=== PATIENT | female | born 1970 | race Two or more races ===

== ENCOUNTER 2024-05-22 23:46 | Emergency (ER) | payer MEDICAID, SELFPAY ==
[2024-05-23 00:12] VITALS: BP 149/110; PULSE 74; RESP 20; TEMP 36.9; O2SAT 97
--- NOTE | 2024-05-23 00:28 | PD.EDSKIN ---
ED Skin Abcess FB-RME/HPI General Chief complaint: Skin/Abscess/Foreign Body Stated complaint: RASH/WOUND TO RIGHT LOWER LEG Time Seen by Provider: 05/22/24 23:52 Source: patient, RN notes reviewed and old records reviewed Arrival date/time: 05/22/24 23:46 Mode of arrival: ambulatory Limitations: no limitations RME / HPI RME / HPI narrative: 54yof presents to ED for 4-month history of rash to right ankle. Patient states rash is mostly itchy but mildly painful. Denies new soaps, detergents, foods, medications or outdoor exposures. No tongue/throat swelling, sob or n/v reported. No recent medications or treatments. Related Data Home Medications ?Medication ?Instructions ?Recorded ?Confirmed albuterol sulfate 90 mcg/actuation 2 puff inhalation Q6H PRN Wheezing 09/26/20 09/26/20 aerosol inhaler aspirin 81 mg tablet,delayed 81 mg PO QDAY 09/26/20 09/26/20 release ferrous sulfate 325 mg (65 mg 325 mg PO BID 09/26/20 09/26/20 iron) tablet naproxen 375 mg tablet 375 mg PO BID 09/26/20 09/26/20 pantoprazole 20 mg tablet,delayed 20 mg PO QDAY 09/26/20 09/26/20 release sertraline 50 mg tablet 50 mg PO QDAY 09/26/20 09/26/20 valsartan 40 mg tablet 40 mg PO BID 09/26/20 09/26/20 Previous Rx's ?Medication ?Instructions ?Recorded prednisone 50 mg tablet 50 mg PO QDAY #5 tabs 10/17/21 omeprazole 40 mg capsule,delayed 40 mg PO QDAY #30 caps 10/04/22 release ibuprofen 600 mg tablet 600 mg PO Q6H #30 tabs 10/27/23 diphenhydramine HCl 25 mg capsule 25 mg PO Q8H PRN allergic symptoms 11/24/23 (Benadryl) #30 caps clotrimazole-betamethasone 1 1 applic topical BID 4 weeks #45 05/23/24 %-0.05 % topical cream grams Allergies Allergy/AdvReac Type Severity Reaction Status Date / Time Penicillins Allergy Severe Hives Verified 05/22/24 23:47 Review of Systems Review of Systems Systems Reviewed: All systems reviewed, normal except as documented Constitutional Constitutional: Denies fever(s) Integumentary/Breasts Skin/Breast: Reports pruritus, Reports rash and Reports skin pain Past Medical History Past Medical History CARDIAC: Positive Hypertension RESPIRATORY: Positive Asthma and Sleep Apnea GASTROINTESTINAL: Positive Gastroesophageal Reflux Disease and Obesity ENDOCRINE: Positive Diabetes Mellitus Type 2 HEMATOLOGIC: Positive Anemia PSYCHO/SOCIAL: Positive Depression and Anxiety Surgical History SURGICAL: Positive Section Social History SMOKING STATUS: Never smoker ED Exam General Limitations: Present no limitations General appearance: Present alert and in no apparent distress Head Head exam: Present atraumatic and normocephalic Eye Eye exam: Present normal appearance, PERRL and EOMI ENT ENT exam: Present normal exam, normal oropharynx and mucous membranes moist Neck Neck exam: Present normal inspection and full ROM Chest Chest inspection: Present normal inspection and symmetric chest wall rise Respiratory Respiratory exam: Present normal lung sounds bilaterally; Absent respiratory distress, wheezes or stridor Cardiovascular Cardiovascular exam: Present regular rate and normal rhythm Extremities Exam Extremities exam: Present normal inspection and full ROM; Absent tenderness, pedal edema or joint swelling Neurological Exam Neurological exam: Present alert and oriented X3 Psychiatric Psychiatric exam: Present normal affect and normal mood Skin Skin exam: Present warm, dry, intact and rash (Multiple large annular dry, scaly lesions to right ankle with excoriations, scabbing) Course Quality Measures none Vital Signs Vital signs: Vital Signs Temperature 98.4 F 05/23/24 00:12 Pulse Rate 74 05/23/24 00:12 Respiratory Rate 20 05/23/24 00:12 Blood Pressure 149/110 H 05/23/24 00:12 Pulse Oximetry (%) 97 05/23/24 00:12 Oxygen Delivery Method Room Air 05/23/24 00:12 Skin / Abscess / Foreign Body MDM Narrative MDM Narrative:: 54yof presents to ED for 4-month history of rash to right ankle. Patient states rash is mostly itchy but mildly painful. Denies new soaps, detergents, foods, medications or outdoor exposures. No tongue/throat swelling, sob or n/v reported. No recent medications or treatments. Rash appears fungal. Will also treat for mild secondary bacterial infection. Encouraged to avoid scratching. Keep area clean, dry. Derm follow up as needed. Stable for dc, RTED precautions given. Patient data External records reviewed:: [facility] previous records (11/24/23 ED visit for rash) Clinical information provided by:: patient Social determinants that could affect healthcare access:: other (specify) (poor access to healthcare, acculturation difficulty) Patient has the following chronic illnesses:: HTN, anxiety, DM How is presenting disease/condition affected by chronic disease/condition?: exacerbated by Evaluation data The following diagnostics were reviewed and interpreted by me:: other (specify) (none) Lab and/or radiology exams considered but not ordered:: none Interpretation Summary: na Medications / Prescriptions Medications or Prescriptions considered but not ordered:: none Medication administrations:: none Consultations Consultation(s) initiated? (list below): No Diagnosis Skin/Abscess Differential Diagnosis: abscess of skin or subcutaneous tissue, viral exanthem, urticaria, cellulitis, eczema, impetigo and contact dermatitis Most likely diagnosis given after review of the tests above:: tinea Admission Indicated Admission indicated?: not indicated Admission Request Was there a request for admission?: No Disposition Plan Disposition Plan: Discharge Discharge Attestation Discharge Attestation: The patient and all family members were given an opportunity to ask questions and understood the discharge instructions. Discharge instructions specifically effects, indications for sooner follow up or return to the emergency department, and the expected course of current diagnosis. Patient condition: Stable Discharge Plan Plan Patient Disposition: HOME (Self Care) Patient condition on transfer: Stable Prescriptions/Referrals Prescriptions/Med Rec: New clotrimazole-betamethasone 1-0.05 % cream 1 applic topical BID 28 Days Qty: 45 0RF No Action naproxen 375 mg Tablet 375 mg PO BID aspirin 81 mg Tablet,Delayed Release (Dr/Ec) 81 mg PO QDAY pantoprazole 20 mg Tablet,Delayed Release (Dr/Ec) 20 mg PO QDAY ferrous sulfate 325 mg (65 mg iron) Tablet 325 mg PO BID sertraline 50 mg Tablet 50 mg PO QDAY valsartan 40 mg Tablet 40 mg PO BID albuterol sulfate 90 mcg/actuation Hfa Aerosol Inhaler 2 puff INHALATION Q6H PRN (Reason: Wheezing) prednisone 50 mg tablet 50 mg PO QDAY Qty: 5 0RF diphenhydramine HCl [Benadryl] 25 mg capsule 25 mg PO Q8H PRN (Reason: allergic symptoms) Qty: 30 0RF omeprazole 40 mg capsule,delayed release(DR/EC) 40 mg PO QDAY Qty: 30 0RF ibuprofen 600 mg tablet 600 mg PO Q6H Qty: 30 0RF Problem List Clinical Impression: Rash Patient/Caregiver Discharge Instructions Education Materials: ED Fungal Skin Infection (Tinea) Print Language: Vietnamese Stand Alone Forms: [facility] Award Info., Patient Portal Info Letter PA/RUNNER OUT Supervising Physician PA/RUNNER OUT Supervising Physician: Rizwana
== END 2024-05-23 00:51 | disposition home or self-care (01) ==
LOC: SERX 05-23 03:55
PROVIDERS: Emergency Provider Emergency Medicine; PCP Physician Assistant
DX: R21 Rash and other nonspecific skin eruption (principal)
CPT/HCPCS: 99281

== ENCOUNTER 2024-08-24 01:46 | Emergency (ER) | payer MEDICAID, SELFPAY ==
[2024-08-24 02:01] VITALS: BP 152/110; PULSE 85; RESP 18; TEMP 36.9; O2SAT 99
[2024-08-24] MEDS: NAPROXEN 250 MG TABLET 500 MG PO (02:22)
--- NOTE | 2024-08-24 02:32 | EDNOTE_ITS ---
<Statement entered by Sonia Gotti MD - 08/25/24 18:57> As co-signing physician, I was present and available for consult prn. I concur with the plan and care as documented by the midlevel provider. ED Extremity Problem RME/HPI General Chief complaint: Extremity Injury, Upper Stated complaint: R ARM PAIN Time Seen by Provider: 08/24/24 02:13 Arrival date/time: 08/24/24 01:46 54F with history of DM, HTN, and psych presents to ED with several weeks of R shoulder pain that radiates down to fingertip. Pain started several days after patient was pulling on something with that arm. Pain is worse with movement. Patient has been taking Tylenol w/o relief. Limitations: no limitations Related Data Home Medications ?Medication ?Instructions ?Recorded ?Confirmed albuterol sulfate 90 mcg/actuation 2 puff inhalation Q 6H PRN Wheezing 09/26/20 09/26/20 aerosol inhaler aspirin 81 mg tablet,delayed 81 mg PO QDAY 09/26/20 release ferrous sulfate 325 mg (65 mg 325 mg PO BID 09/26/20 0 09/26/20 iron) tablet naproxen 375 mg tablet 375 mg PO BID 09/26/2009/26 pantoprazole 20 mg tablet,delayed 20 mg PO QDAY 09/26/20 release sertraline 50 mg tablet 50 mg PO QDAY 09/26/2009/26 valsartan 40 mg tablet 40 mg PO BID 09/26/20 Previous Rx's ?Medication ?Instructions ?Recorded prednisone 50 mg tablet 50 mg PO QDAY #5 tabs omeprazole 40 mg capsule,delayed 40 mg PO QDAY #30 cap s 10/04/22 release ibuprofen 600 mg tablet 600 mg PO Q6H #30 tabs 10/26 diphenhydramine HCl 25 mg capsule 25 mg PO Q8H PRN all ergic symptoms 11/24/23 (Benadryl) #30 caps Allergies Allergy/AdvReac Type Severity Reaction Status Date / Time Penicillins Allergy Severe Hives Verified 08/24/24 01:56 Review of Systems Review of Systems Systems Reviewed: All systems reviewed, normal except as documented Constitutional Constitutional: Reports system reviewed and no additional complaints, except as documented, Denies fever(s) and Denies headache(s) ENT Ears, Nose, Mouth, and Throat: Denies disequilibrium and Denies headache(s) Cardiovascular Cardiovascular: Reports system reviewed and no additional complaints, except as documented, Denies chest pain and Denies dyspnea Respiratory Respiratory: Reports system reviewed and no additional complaints, except as documented, Denies cough and Denies dyspnea Gastrointestinal Gastrointestinal: Reports system reviewed and no additional complaints, except as documented, Denies abdominal pain, Denies nausea and Denies vomiting Musculoskeletal Musculoskeletal: Reports as per HPI and Reports arthralgias Neurologic Neurologic: Reports system reviewed and no additional complaints, except as documented, Denies confusion, Denies disequilibrium and Denies headache(s) Psychiatric Psychiatric: Denies confusion Past Medical History Past Medical History NEUROLOGIC: Negative Neurological Disorders CARDIAC: Positive Cardiac Disorders, Edema and Hypertension; Negative Congestive Heart Failure, Cellulitis or Varicose Veins RESPIRATORY: Positive Asthma, Bronchitis and Sleep Apnea; Negative Chronic Obstructive Pulmonary Disease (COPD) or Tuberculosis GASTROINTESTINAL: Positive Gastrointestinal Disorders, Gastroesophageal Reflux Disease and Obesity; Negative Hepatitis GENITOURINARY: Negative Renal Disease REPRODUCTIVE: Positive Previous Pregnancies MUSCULOSKELETAL: Negative Musculoskeletal Disorders ENDOCRINE: Positive Diabetes Mellitus Type 2; Negative Endocrine Disorders or Diabetes Mellitus Type 1 HEMATOLOGIC: Positive Blood Disorders and Anemia PSYCHO/SOCIAL: Positive Depression and Anxiety OTHER HISTORY: Positive Autoimmune Disease and Chicken Pox; Negative Hospitalization, Shingles, Falls, Blood Transfusions, Blood Transfusion Reaction, Anesthesia Reactions, Chemotherapy, Radiation Therapy, MRSA, Measles, Mumps or Cancer Family History FAMILY HISTORY: Positive Family Psychiatric Problems, Family Respiratory Disorders, Family Cardiac Disorders, Family Gastrointestinal Problems and Family Surgery; Negative Family Cancer or Family Anesthesia Reaction Surgical History SURGICAL: Positive Section; Negative Pacemaker Social History SMOKING STATUS: Never smoker ED Exam General Limitations: Present no limitations General appearance: Present alert and in no apparent distress Head Head exam: Present atraumatic Eye Eye exam: Present normal appearance, PERRL and EOMI ENT ENT exam: Present normal exam, normal oropharynx and mucous membranes moist Neck Neck exam: Present normal inspection, full ROM and trachea midline Chest Chest inspection: Present normal inspection and symmetric chest wall rise Respiratory Respiratory exam: Present normal lung sounds bilaterally Cardiovascular Cardiovascular exam: Present regular rate, normal rhythm and normal heart sounds Abdominal Exam Abdominal exam: Present soft and normal bowel sounds Extremities Exam Extremities exam: Present normal inspection and full ROM Back Exam Back exam: Present normal inspection and full ROM Neurological Exam Neurological exam: Present alert, oriented X3 and CN II-XII intact Psychiatric Psychiatric exam: Present normal affect and normal mood Skin Skin exam: Present warm, dry, intact and normal color Course Quality Measures none Orders Category Date Time Status Naproxen [Naprosyn] Med 08/24/24 02:14 Discontinued 500 mg PO X1 ONE Vital Signs Vital signs: Vital Signs Temperature 98.4 F 08/24/24 02:01 Pulse Rate 85 08/24/24 02:01 Respiratory Rate 18 08/24/24 02:01 Blood Pressure 152/110 H 08/24/24 02:01 Pulse Oximetry (%) 99 08/24/24 02:01 Oxygen Delivery Method Room Air 08/24/24 02:01 O2 at 99% on RA and WNLs Extremity Problem MDM Narrative MDM Narrative:: 54F with history of DM, HTN, and psych presents to ED with several weeks of R shoulder pain that radiates down to fingertip. Pain started several days after patient was pulling on something with that arm. Pain is worse with movement. Patient has been taking Tylenol w/o relief. Physical exam reveals grossly normal RUE. Normal WOB. Patient is afebrile, calm, and alert. Likely MSK-in nature. Given meds and certified alcohol counselor. Patient data External records reviewed:: [facility] previous records Clinical information provided by:: patient Social determinants that could affect healthcare access:: mental health Patient has the following chronic illnesses:: DM, HTN, and psych How is presenting disease/condition affected by chronic disease/condition?: exacerbated by Evaluation data The following diagnostics were reviewed and interpreted by me:: other (specify) (none) Lab and/or radiology exams considered but not ordered:: not ordered Interpretation Summary: n/a Medications / Prescriptions Medications or Prescriptions considered but not ordered:: ordered Medication administrations:: Medication Administration History Discontinued Medications Naproxen (Naproxen 250 Mg Tablet) 500 mg PO X1 ONE Stop: 08/24/24 02:15 Last Admin: 08/24/24 02:22 Dose: 500 mg Documented By: MELLISSA above Consultations Consultation(s) initiated? (list below): No Diagnosis Extremity Problem Differential Diagnosis: herpes zoster, gout, cellulitis, superficial thrombophlebitis, deep venous thrombosis of upper extremity, lower extremity edema, deep vein thrombosis of lower extremity and other (arthralgia) Most likely diagnosis given after review of the tests above:: arthralgia Admission Indicated Admission indicated?: not indicated Admission Request Was there a request for admission?: No Disposition Plan Disposition Plan: Discharge Discharge Attestation Discharge Attestation: The patient and all family members were given an opportunity to ask questions and understood the discharge instructions. Discharge instructions specifically effects, indications for sooner follow up or return to the emergency department, and the expected course of current diagnosis. Patient condition: Stable Discharge Plan Plan Patient Disposition: HOME (Self Care) Discharge Disposition comment: Stable Prescriptions/Referrals Prescriptions/Med Rec: No Action naproxen 375 mg Tablet 375 mg PO BID aspirin 81 mg Tablet,Delayed Release (Dr/Ec) 81 mg PO QDAY pantoprazole 20 mg Tablet,Delayed Release (Dr/Ec) 20 mg PO QDAY ferrous sulfate 325 mg (65 mg iron) Tablet 325 mg PO BID sertraline 50 mg Tablet 50 mg PO QDAY valsartan 40 mg Tablet 40 mg PO BID albuterol sulfate 90 mcg/actuation Hfa Aerosol Inhaler 2 puff INHALATION Q6H PRN (Reason: Wheezing) prednisone 50 mg tablet 50 mg PO QDAY Qty: 5 0RF diphenhydramine HCl [Benadryl] 25 mg capsule 25 mg PO Q8H PRN (Reason: allergic symptoms) Qty: 30 0RF omeprazole 40 mg capsule,delayed release(DR/EC) 40 mg PO QDAY Qty: 30 0RF ibuprofen 600 mg tablet 600 mg PO Q6H Qty: 30 0RF Problem List Clinical Impression: Arthralgia Patient/Caregiver Discharge Instructions Education Materials: ED Arthralgia Additional Instructions: Please follow-up with PCP within 24-48 hours and return immediately if symptoms worsen. If problem persists, recommend outpatient PT and/or MRI follow-up. In the meantime, rest, use ice/heat, and/or compression. NSAIDs like ibuprofen tend to work better for this type of pain. Print Language: Guyanese Stand Alone Forms: Patient Portal Info Letter PA/PAOLO Supervising Physician STEPHANIE/PAOLO Supervising Physician: Dr. Gotti
== END 2024-08-24 02:25 | disposition home or self-care (01) ==
LOC: SERX 02:25
PROVIDERS: Emergency Provider Emergency Medicine; PCP Physician Assistant
DX: M79.601 Pain in right arm (principal)
CPT/HCPCS: 99282; A9270